=== PATIENT | female | born 1935 | race Caucasian/White ===

== ENCOUNTER 2017-10-23 11:00 | Inpatient (IN) ==
--- NOTE | 2017-10-23 11:29 | Emergency Department Note ---
Disposition Clinical Impression: Acute exacerbation of chronic obstructive airways disease, Hypoxia, Influenza A Disposition: Admitted As Inpatient Condition: Good Time of Disposition: 13:42 General Adult HPI - General Chief complaint: ED Shortness of Breath/Dyspnea Stated complaint: flu-like symptoms Time Seen by Provider: 10/23/17 11:13 Source: patient Limitations: no limitations Nursing Notes Reviewed: Yes Vital Signs Reviewed: Yes - History of Present Illness HPI Narrative: 82-year-old female history of COPD, hypertension, history of pulmonary embolism on Coumadin presents to the ED for difficulty breathing and wheezing. Symptoms started Sunday night and have gradually worsened. This was within the past 48 hours. She reports a general malaise, cough nonproductive, difficulty breathing and soreness in her shoulders and muscle aches. Denies any fever or chills. Denies any chest pain. She spoke to her independent producer Dr. Franklin who recommended she come in for further evaluation to the emergency department. Patient uses inhalers which she reports improvement. She also takes monolukast at night with symptom improvement. Pain Scale: 0 - Related Data Home Medications Medication Instructions Recorded Confirmed Atorvastatin Calcium [Lipitor] 20 mg PO DAILY 10/23/17 10/23/17 Chlorthalidone 25 mg PO DAILY 10/23/17 10/23/17 Escitalopram [Lexapro] 10 mg PO DAILY 10/23/17 10/23/17 Losartan [Cozaar] 25 mg PO DAILY 10/23/17 10/23/17 Metoprolol [Lopressor] 37.5 mg PO BID 10/23/17 10/23/17 Montelukast [Singulair] 10 mg PO DAILY 10/23/17 10/23/17 Potassium Chloride [K-Tab ER] 20 meq PO TID 10/23/17 10/23/17 Ranitidine HCl [Acid [facility] Manager] 150 mg PO BID 10/23/17 10/23/17 Warfarin [Coumadin] 2.5 mg PO SUTUTH 10/23/17 10/23/17 Warfarin [Coumadin] 5 mg PO MOWEFRSA 10/23/17 10/23/17 Allergies Allergy/AdvReac Type Severity Reaction Status Date / Time ELIDA Inhibitors Allergy Hives Verified 10/23/17 12:00 aspirin Allergy Anaphylaxis Verified 09/21/17 09:13 Iodinated Contrast- Oral and Allergy Hives Verified 10/23/17 12:00 IV Dye All systems ED: reviewed and negative except as stated. Review of Systems: As Per HPI Constitutional: Denies: fever, chills, weakness ENT ED: Denies: throat pain, congestion Cardiovascular: Denies: chest pain, dyspnea on exertion Respiratory: Reports: cough, dyspnea, wheezes Gastrointestinal: Denies: abdominal pain, nausea, vomiting Genitourinary: Denies: urgency, dysuria Musculoskeletal: Reports: myalgia. Denies: back pain, neck pain Integumentary: Denies: rash, abrasion, lesions Neurological: Denies: headache Past Medical History - Past Medical History Attestation: Yes The following information was validated with the patient. Source: patient Medical history: Reports: asthma, COPD, GERD, hyperlipidemia, hypertension Psychiatric history: Reports: no psych history - Social History Smoking Status: Never smoker Smokeless Tobacco Status: No Alcohol use: Reports: none Drug use: Reports: none Physical Exam - General Limitations: no limitations General appearance: alert, in no apparent distress - Head Head exam: atraumatic, normocephalic, normal inspection - Eye Eye exam: Present: normal appearance, PERRL, EOMI - ENT ENT exam: normal exam, normal oropharynx, mucous membranes moist - Neck Neck exam: Present: normal inspection, full ROM, trachea midline. Absent: tenderness - Chest Chest inspection: Present: normal inspection, symmetric chest wall rise. Absent : tenderness - Respiratory Respiratory exam: Present: wheezes. Absent: respiratory distress - Expanded Respiratory Exam Location: wheezes: Right, Left - Cardiovascular Cardiovascular exam: Present: regular rate, normal rhythm, normal heart sounds. Absent: systolic murmur, diastolic murmur - Abdominal Exam Abdominal exam: Present: soft, Non-Tender, normal bowel sounds. Absent: tenderness, distention, guarding, rebound, rigidity - Extremities Exam Extremities exam: Present: normal inspection, full ROM, normal capillary refill. Absent: tenderness, pedal edema, calf tenderness - Back Exam Back exam: Present: normal inspection, full ROM. Absent: tenderness - Neurological Exam Neurological exam: Present: alert, oriented X3 - Psychiatric Psychiatric exam: Present: normal affect, normal mood - Skin Skin exam: Present: warm, dry, intact, normal color. Absent: rash, cyanosis, diaphoresis Course - Reevaluation(s) Reevaluation #1: Significant improvement after breathing treatment steroids. Continues to have some scattered wheezing and some crackles. Chest x-ray does not reveal pneumonia. Review of the labs no leukocytosis. BNP is slightly elevated. Possible a component of CHF exacerbation on top of COPD exacerbation. Troponin less than 0.03. Some mild electrolyte abnormality nothing significant. EKG does not reveal any acute ischemic changes. She is influenza A positive. Her INR is a therapeutic at 2.2. Suspect this is more due to her COPD. Denies suspect pulmonary embolism at this time she is there. On her warfarin. Impression is COPD exacerbation, dyspnea, hypoxia, influenza A. Patient will benefit continuous breathing treatment and steroid for COPD exacerbation. Patient and family are in agreement with this plan. - Consultations Consultation #1: Spoke with on-call hospitalist dariusz Gates to admit for hypoxia, COPD exacerbation, influenza A. No further orders at this time Time: 13:42 Vital Signs Temperature 99.6 F 10/23/17 11:07 Pulse Rate 97 10/23/17 11:07 Respiratory Rate 20 10/23/17 11:07 Blood Pressure 125/65 10/23/17 11:07 O2 Sat by Pulse Oximetry 94 10/23/17 11:07 Temperature 98.5 F 10/23/17 13:45 Pulse Rate 103 10/23/17 13:45 Respiratory Rate 22 10/23/17 13:45 Blood Pressure 122/65 10/23/17 13:45 O2 Sat by Pulse Oximetry 94 10/23/17 13:45 Oxygen Delivery Oxygen Delivery Nasal Cannula Medical Decision Making - MDM Narrative Medical decision making narrative: Patient was discussed with my attending physician who agrees with ED management and final disposition. They independently evaluated the patient. Please refer to their attestation to this encounter for additional information. This note was generated by [employer] voice recognition software and as a result grammatical or spelling errors may occur using this program. - Medical Records Medical records reviewed: Yes I reviewed the patient's medical records. - Lab Data Lab results reviewed: Yes I reviewed the patient's lab results. Result diagrams: 10/23/17 11:45 10/23/17 11:45 Lab Results 10/23/17 10/23/17 10/23/17 Range/Units 11:45 11:45 11:45 WBC 6.6 (4.3-11.1) K/mcL RBC 4.34 (3.82-4.97) M/mcL Hgb 13.1 (11.5-15.4) g/dL Hct 37.9 (35.3-44.9) % MCV 87.3 (83.0-100.0) fL MCH 30.2 (28.0-33.3) pg MCHC 34.6 (31.6-35.5) g/dL RDW 13.0 (11.5-14.5) % Plt Count 196 (140-400) K/mcL MPV 9.1 L (9.4-12.4) fL Immature Gran % 0.3 (0-4) % Seg Neutrophils % 74.8 % Lymphocytes % 7.8 % Monocytes % 13.4 % Eosinophils % 2.9 % Basophils % 0.8 % Neutrophils # 4.9 (1.6-8.9) K/mcL Lymphocytes # 0.5 L (0.6-4.6) K/mcL Monocytes # 0.9 (0.0-1.3) K/mcL Eosinophils # 0.2 (0.0-0.6) K/mcL Basophils # 0.1 (0.0-0.2) K/mcL PT (9.4-12.1) Seconds INR Sodium 133 L (136-145) mEq/L Potassium 3.3 L (3.5-5.1) mEq/L Chloride 100 (98-107) mEq/L Carbon Dioxide 25 (23-29) mEq/L BUN 10 (8-23) mg/dL Creatinine 1.09 (0.60-1.20) mg/dL Est GFR ( Amer) 58 L (> 60) Est GFR (Non-Af Amer) 48 L (> 60) BUN/Creatinine Ratio 9 (6-26) Glucose 117 H (70-105) mg/dL Calculated Osmolality 276 L (280-300) Lactic Acid 1.8 (0.5-2.2) mmol/L Calcium 9.0 (8.6-10.3) mg/dL Troponin I (< 0.04) ng/mL B-Natriuretic Peptide (Less than 100) pg/mL 10/23/17 10/23/17 10/23/17 Range/Units 11:45 11:45 11:48 WBC (4.3-11.1) K/mcL RBC (3.82-4.97) M/mcL Hgb (11.5-15.4) g/dL Hct (35.3-44.9) % MCV (83.0-100.0) fL MCH (28.0-33.3) pg MCHC (31.6-35.5) g/dL RDW (11.5-14.5) % Plt Count (140-400) K/mcL MPV (9.4-12.4) fL Immature Gran % (0-4) % Seg Neutrophils % % Lymphocytes % % Monocytes % % Eosinophils % % Basophils % % Neutrophils # (1.6-8.9) K/mcL Lymphocytes # (0.6-4.6) K/mcL Monocytes # (0.0-1.3) K/mcL Eosinophils # (0.0-0.6) K/mcL Basophils # (0.0-0.2) K/mcL PT 23.8 H (9.4-12.1) Seconds INR 2.2 Sodium (136-145) mEq/L Potassium (3.5-5.1) mEq/L Chloride (98-107) mEq/L Carbon Dioxide (23-29) mEq/L BUN (8-23) mg/dL Creatinine (0.60-1.20) mg/dL Est GFR ( Amer) (> 60) Est GFR (Non-Af Amer) (> 60) BUN/Creatinine Ratio (6-26) Glucose (70-105) mg/dL Calculated Osmolality (280-300) Lactic Acid (0.5-2.2) mmol/L Calcium (8.6-10.3) mg/dL Troponin I < 0.03 (< 0.04) ng/mL B-Natriuretic Peptide 132 H (Less than 100) pg/mL - Radiology Data Radiology results reviewed: Yes I reviewed the patient's radiology results. Chest X-Ray 10/23/17 11:37 IMPRESSION: No acute process. D/ / Jesu Porras MD / Jesu Porras MD Interpreting Provider: Jesu Porras MD - EKG Data EKG #1 EKG attestation: Yes I reviewed and interpreted this EKG. EKG results narrative: EKG performed 1155 normal sinus rhythm with a ectopic premature complexes, normal axis, early R wave progression, no ST elevations or depression, no T wave inversion, intervals are within normal limits. Compared to old EKG performed for 2012 shows similar consistent findings. No acute ischemic changes. Attestation Statement - Attestation Attestation: I, Denzel Rea DO, examined this patient [id number] and my medical decision-making was reviewed with Prince Pedersen DO , Resident Physician. I agree with the documented findings, disposition and treatment plan as described except to the extent set forth below. Please see my progress notes for details. 82-year-old female presents to emergency room with flulike symptoms generalized malaise and significant shortness of breath. Patient has known COPD. She has been attempting use her breathing treatments at home without any relief. Denies any recent illnesses outside of what she describes as the muscle aches and then intermittent fevers and chills at home. She has no documented temperature at this time. Vital signs reviewed on presentation show increased work of breathing tachypnea and mild hypoxia. Patient immediately given breathing treatments and oxygen was applied. Clinically she has bilateral breath sounds are coarse and rattly with intermittent wheezing. Her heart is regular but tachycardic. Abdomen is soft nontender nondistended no guarding no rigidity no peritoneal symptoms. No pulsatile masses or lesions noted. Patient is a rash on her back but appears to be from excoriation not from any signs of herpetic-like lesion or infectious etiology. Patient does have mild pitting edema +1 up to the mid geller. Patient is having some mild resolution of the symptoms while here in the emergency room. She feels much less labored on presentation. BiPAP was not needed initially. Patient is concerning for COPD exacerbation with either bronchitis or pneumonia. She also may have an aspect of pulmonary congestion secondary to congestive heart failure. Patient will most likely need admission. Patient family informed as well as a patient this time and there are comfortable with this treatment course and progression. They understand her concern appreciated concern at this time. Patient will have admission process completed once laboratory workup and imaging modalities are resulted. See detailed documentation of physical exam, medical intervention , medical decision-making and disposition of the resident physician no. Initial EKG shows sinus rhythm with intermittent PVCs. No acute signs of ST segment elevation or abnormalities. It is compared and reviewed in comparison to EKG of 01/27/13. 1430 Patient is going to be admitted this time. Hospitalist informed. No other questions or concerns. Patient stable at the time of admission to the floor.
[2017-10-23] MEDS ORDERED: Ipratropium/Albuterol Neb 3 ML IH ONE (11:37)
[2017-10-23] MEDS ORDERED: methylPREDNISolone 125 MG/2 ML VIAL IVP ONE (11:37)
[2017-10-23 11:58] LABS: INR 2.2; Prothrombin Time 23.8 Seconds (9.4-12.1)
[2017-10-23 11:58] LABS: Basophils # 0.1 K/mcL (0.0-0.2); Basophils % 0.8 %; Eosinophils # 0.2 K/mcL (0.0-0.6); Eosinophils % 2.9 %; Hematocrit 37.9 % (35.3-44.9); Hemoglobin 13.1 g/dL (11.5-15.4); Immature Granulocytes % 0.3 % (0-4); Lymphocytes # 0.5 K/mcL (0.6-4.6); Lymphocytes % 7.8 %; Mean Corpuscular HGB Conc 34.6 g/dL (31.6-35.5); Mean Corpuscular Hemoglobin 30.2 pg (28.0-33.3); Mean Corpuscular Volume 87.3 fL (83.0-100.0); Mean Platelet Volume 9.1 fL (9.4-12.4); Monocytes # 0.9 K/mcL (0.0-1.3); Monocytes % 13.4 %; Neutrophils # 4.9 K/mcL (1.6-8.9); Platelet Count 196 K/mcL (140-400); Red Blood Count 4.34 M/mcL (3.82-4.97); Segmented Neutrophils % 74.8 %
[2017-10-23 12:13] LABS: Potassium 3.3 mEq/L (3.5-5.1)
--- NOTE | 2017-10-23 16:07 | Internal Med History&Physical ---
Date of Encounter: 10/23/17 Time of Encounter: 16:34 Assessment and Plan (1) Acute exacerbation of chronic obstructive airways disease Current visit: Yes Status: Acute ASSESSMENT: - SOB due to *COPd exacerbation caused by URTI, allergen exposure, medication nonocompliance *Pneumonia - no infiltrate on CXR PLAN: - Aerosols q 4 hr and PRN SOB - Solu-medrol 40 mg IV q 6 hr - O2 to keep SpO2 higher than 92% (SpO higher than 95% if CAD) - CBCD, BMP in AM - Sputum Gram stain, C+S - Tylenol 650 mg PO q 4-6 hr PRN pain/fever - Heparin 5000 U SQ BID - Home meds - check the list and restart - ABs (2) Influenza A Current visit: Yes Status: Acute Starting oseltamivir for 10 doses (3) Hyponatremia Current visit: Yes Status: Acute Mild hyponatremia , most likely hypovolumic, monitor (4) Chronic kidney disease (CKD) Current visit: Yes Status: Acute Cr at baseline , renal dosing of meds, avoid nephrotoxins (5) DVT prophylaxis Current visit: Yes Status: Acute On chronic anticoagulation with Coumadin Internal Medicine - H&P: HPI Chief complaint: SOB Admitted From: Home History of present illness: Ms. Mejia is a 82 year old female with history of COPD, hypertension, history of pulmonary embolism on chronic anticoagulation with Coumadin presents to the ED with progressive worsening of SOB and wheezing associated with general malaise, cough nonproductive and soreness in her shoulders and muscle aches. She was evaluated by the ER staff and she tested positive for the flu, She was admitted for further evaluation and management of COPD exacerbation. Past Med Surg Social Fam HX - Past Medical History Medical history: asthma, COPD, GERD, hyperlipidemia, hypertension Psychiatric history: no psych history - Social History Smoking Status: Never smoker Smokeless Tobacco Status: No Alcohol use: none Drug use: none - Family History Father Name: Arsen Wilhelm Living Status: Cause of : 67 Hx Family Cardiac Disorders: Yes Internal Medicine - H&P: Meds Atorvastatin Calcium [Lipitor] 20 mg PO DAILY 10/23/17 [History] Chlorthalidone 25 mg PO DAILY 10/23/17 [History] Escitalopram [Lexapro] 10 mg PO DAILY 10/23/17 [History] Metoprolol [Lopressor] 37.5 mg PO BID 10/23/17 [History] Montelukast [Singulair] 10 mg PO DAILY 10/23/17 [History] Potassium Chloride [K-Tab ER] 20 meq PO TID 10/23/17 [History] Ranitidine HCl [Acid Clinical Programmer] 150 mg PO BID 10/23/17 [History] Warfarin [Coumadin] 2.5 mg PO SUTUTH 10/23/17 [History] Warfarin [Coumadin] 5 mg PO MOWEFRSA 10/23/17 [History] 3 Allergy/AdvReac Type Severity Reaction Status Date / Time ELIDA Inhibitors Allergy Hives Verified 10/23/17 12:00 ARB-Angiotensin Receptor Allergy Swelling Verified 10/24/17 09:20 Antagonist of Lip/Tongue/Throat aspirin Allergy Anaphylaxis Verified 09/21/17 09:13 Iodinated Contrast- Oral and Allergy Hives Verified 10/23/17 12:00 IV Dye All Systems PM: A 10-system review of systems was performed and is negative for pertinent findings except as documented above in the HPI. - Constitutional Constitutional: no chills, no fever(s), no night sweats - Cardiovascular Cardiovascular ROS IM: dyspnea, no chest pain, no diaphoresis, no lightheadedness, no palpitations, no syncope - Respiratory Respiratory: cough, dyspnea, wheezing, no excessive phlegm production - Gastrointestinal Gastrointestinal: no abdominal pain, no diarrhea, no hematemesis, no hematochezia, no melena, no nausea, no vomiting - Neurological Neurological ROS: no confusion, no convulsions, no focal weakness, no numbness, no tingling, no tremor(s) - Constitutional Vitals: Temp Pulse Resp BP Pulse Ox 98.0 F 95 16 101/63 95 10/23/17 14:36 10/23/17 14:36 10/23/17 14:36 10/23/17 14:36 10/23/17 14:36 General appearance: Present: A&O X 3 - Head Head exam: Present: atraumatic, normocephalic - Neck Neck exam general surgery: Present: supple, trachea midline. Absent: lymphadenopathy - Respiratory Respiratory exam: Present: rhonchi, wheezes. Absent: accessory muscle use, rales - Cardiovascular Cardiovascular exam: Present: RRR, +S1, +S2. Absent: diastolic murmur, gallop, rubs, systolic murmur - GI/Abdominal GI/Abdominal exam: Present: normal bowel sounds, soft, no peritoneal signs. Absent: distended, tenderness - Extremities Exam Extremities exam: Present: warm, radial pulses palpable and symmetrical. Absent : calf tenderness, cyanotic, pedal edema Internal Med - H&P Results - Labs CBC & Chem 7: 10/24/17 04:42 10/24/17 04:42
[2017-10-23] MEDS ORDERED: Naloxone 0.4 MG/ML INJ IVP PRN (16:28)
[2017-10-23] MEDS ORDERED: LEVOFLOXACIN 750 MG/150 ML IVPB SCH (17:00)
[2017-10-23] MEDS ORDERED: *HR* Warfarin 2.5 MG TABLET PO SCH (18:00)
[2017-10-23] MEDS: Ipratropium/Albuterol Neb 3 ML IH SCH ×2 (18:18→22:10)
[2017-10-23] MEDS: 0.9 % Sodium Chloride 1,000 ML IVC SCH (19:39)
[2017-10-23] MEDS: Famotidine 20 MG TABLET PO SCH (20:13)
[2017-10-24] MEDS: MethylPREDNISolone 40 MG/ML VIAL IVP SCH ×3 (00:02→16:06)
[2017-10-24] MEDS: Ipratropium/Albuterol Neb 3 ML IH SCH ×4 (04:22→22:41)
[2017-10-24 04:56] LABS: Hematocrit 35.4 % (35.3-44.9); Hemoglobin 12.3 g/dL (11.5-15.4); Immature Granulocytes % 0.5 % (0-4); Lymphocytes # 0.7 K/mcL (0.6-4.6); Lymphocytes % 11.8 %; Mean Corpuscular HGB Conc 34.7 g/dL (31.6-35.5); Mean Corpuscular Hemoglobin 29.7 pg (28.0-33.3); Mean Corpuscular Volume 85.5 fL (83.0-100.0); Mean Platelet Volume 8.9 fL (9.4-12.4); Monocytes # 0.3 K/mcL (0.0-1.3); Monocytes % 5.2 %; Neutrophils # 4.8 K/mcL (1.6-8.9); Platelet Count 193 K/mcL (140-400); Red Blood Count 4.14 M/mcL (3.82-4.97); Red Cell Distribution Width 12.8 % (11.5-14.5); Segmented Neutrophils % 82.5 %
[2017-10-24] MEDS ORDERED: Levofloxacin 500 MG/100 ML 500 MG/100 ML BAG IVPB SCH (09:00)
[2017-10-24] MEDS: Famotidine 20 MG TABLET PO SCH (09:19)
[2017-10-24] MEDS: 0.9 % Sodium Chloride 1,000 ML IVC SCH (13:02)
--- NOTE | 2017-10-24 17:22 | Internal Med Progress Note ---
Date of Encounter: 10/24/17 Time of Encounter: 17:20 - Assessment and plan (1) Acute exacerbation of chronic obstructive airways disease Current Visit: Yes Status: Acute Assessment and plan: Cont frequent duoneb Breathing comfortably on RA started tapering IV steroids cont empirical abx Levaquin (2) Influenza A Current Visit: Yes Status: Acute Assessment and plan: Cont Tamiflu (3) Acute bronchitis Current Visit: Yes Status: Acute Assessment and plan: Mostly due to Influenza A supra infected with bacterial too cont Lois flu + empirical abx Levaquin Qualifiers: Qualified Code(s): J20.9 - Acute bronchitis, unspecified (4) Hypertension Current Visit: Yes Status: Acute Assessment and plan: resumed home meds Metoprolol Held Chlorthalidone due to dehydration Qualifiers: Hypertension type: essential hypertension Qualified Code(s): I10 - Essential (primary) hypertension (5) DVT prophylaxis Current Visit: Yes Status: Acute Assessment and plan: on Levaquin SQ - Subjective Interval history: Ms. Mejia is a 82 year old female with history of COPD, hypertension, history of pulmonary embolism on chronic anticoagulation with Coumadin presents to the ED with progressive worsening of SOB and wheezing associated with general malaise, cough nonproductive and soreness in her shoulders and muscle aches. She was evaluated by the ER staff and she tested positive for the flu, She was admitted for further evaluation and management of COPD exacerbation. Pt stated she is feeling little better now. Denied any CP. Still has mild SOB and MARTINEZ, as well as cough with no expectoration. - Constitutional Vitals: Temp Pulse Resp BP Pulse Ox 98.5 F 61 15 141/66 92 10/24/17 16:02 10/24/17 16:02 10/24/17 16:24 10/24/17 16:02 10/24/17 16:24 General appearance: Present: A&O X 3, no acute distress, answers questions appropriately - Head Head exam: Present: atraumatic, normal inspection - Neck Neck exam general surgery: Present: supple - Respiratory Respiratory exam: Present: decreased breath sounds, wheezes (mild). Absent: rales, respiratory distress, rhonchi - Cardiovascular Cardiovascular exam: Present: RRR, +S1, +S2. Absent: tachycardia - GI/Abdominal GI/Abdominal exam: Present: normal bowel sounds, soft. Absent: rebound, rigid, tenderness - Extremities Exam Extremities exam: Absent: calf tenderness, pedal edema, tenderness - Back Exam Back exam: Absent: CVA tenderness (L), CVA tenderness (R) - Psychiatric Psychiatric exam: Present: normal affect, normal mood - Skin Skin exam: Present: rash (eczematous rash) Internal Medicine: Result - Labs CBC & Chem 7: 10/24/17 04:42 10/24/17 04:42 Labs: Short CBC 10/24/17 Range/Units 04:42 WBC 5.8 (4.3-11.1) K/mcL Hgb 12.3 (11.5-15.4) g/dL Hct 35.4 (35.3-44.9) % Plt Count 193 (140-400) K/mcL Neutrophils # 4.8 (1.6-8.9) K/mcL BMP 10/24/17 04:42 Glucose 144 H - ABG Interpretation ABG results: PT/INR, D-dimer PT 23.8 Seconds (9.4-12.1) H 10/23/17 11:48 Consult Discharge Plan - Plan Referrals: Ventura Hicks DO [Primary Care Provider] -
[2017-10-24] MEDS ORDERED: *HR* Warfarin 5 MG TABLET PO SCH (18:00)
[2017-10-24 18:33] LABS: INR 3.2; Prothrombin Time 35.7 Seconds (9.4-12.1)
--- NOTE | 2017-10-24 19:55 | Electrocardiograph Report ---
[address] [address] Test Date: 2017-10-23 Pat Name: Adrianna Mejia Department: 104 Room: 3B Gender: F Gleason Operator: KALIN : 1935 Requested By: Prince Pedersen Order Number: [id number] Reading MD: Markell Gupta MD Measurements Intervals [place] Rate: 98 P: 99 GA: 141 QRS: 26 QRSD: 77 T: 46 QT: 343 QTc: 399 Interpretive Statements SINUS RHYTHM WITH OCCASIONAL ECTOPIC PREMATURE COMPLEXES Electronically Signed On 10-24-2017 19:54:01 EST by Markell Gupta MD
[2017-10-24] MEDS: Oseltamivir Phosphate 30 MG CAPSULE PO SCH (20:52)
[2017-10-25] MEDS: Ipratropium/Albuterol Neb 3 ML IH SCH ×2 (04:31→10:44)
[2017-10-25 05:13] LABS: INR 3.6; Prothrombin Time 39.3 Seconds (9.4-12.1)
[2017-10-25] MEDS ORDERED: MethylPREDNISolone 40 MG/ML VIAL IVP SCH (06:00)
[2017-10-25 06:53] LABS: Calcium 8.1 mg/dL (8.6-10.3); Potassium 3.3 mEq/L (3.5-5.1)
[2017-10-25] MEDS: Oseltamivir Phosphate 30 MG CAPSULE PO SCH (08:53)
[2017-10-25] MEDS ORDERED: Famotidine 20 MG TABLET PO SCH (09:00)
--- NOTE | 2017-10-25 11:05 | Discharge Summary ---
Date of Encounter: 10/25/17 Time of Encounter: 11:04 - Discharge Diagnosis (1) Acute exacerbation of chronic obstructive airways disease Priority: Primary Status: Acute (2) Influenza A Priority: Primary Status: Acute (3) Acute bronchitis Priority: Primary Status: Acute Qualifiers: Qualified Code(s): J20.9 - Acute bronchitis, unspecified (4) Hypertension Priority: Secondary Status: Acute Qualifiers: Hypertension type: essential hypertension Qualified Code(s): I10 - Essential (primary) hypertension (5) Pulmonary embolism Priority: Secondary Status: Chronic Qualifiers: Qualified Code(s): I27.82 - Chronic pulmonary embolism (6) DVT prophylaxis Priority: Secondary Status: Acute - Discharge Medications Prescriptions: Albuterol Neb [AccuNeb] 0.63 mg IH Q6HR PRN #100 inhsol PRN Reason: Shortness Of Breath Albuterol Sulfate [Albuterol Inhaler] 2 puff IH Q6HR PRN #1 hfa.aer.ad PRN Reason: Shortness Of Breath Amoxicillin/Clavulanate [Augmentin] 875 mg PO BIDWM #8 tablet Oseltamivir Phosphate [Tamiflu] 30 mg PO BID 4 Days capsule predniSONE [PredniSONE] 40 mg PO DAILY #10 tablet Home Medications: Atorvastatin Calcium [Lipitor] 20 mg PO DAILY 10/23/17 [History] Chlorthalidone 25 mg PO DAILY 10/23/17 [History] Escitalopram [Lexapro] 10 mg PO DAILY 10/23/17 [History] Metoprolol [Lopressor] 37.5 mg PO BID 10/23/17 [History] Montelukast [Singulair] 10 mg PO DAILY 10/23/17 [History] Potassium Chloride [K-Tab ER] 20 meq PO TID 10/23/17 [History] Ranitidine HCl [Acid Splash Line Operator] 150 mg PO BID 10/23/17 [History] Warfarin [Coumadin] 2.5 mg PO SUTUTH 10/23/17 [History] Warfarin [Coumadin] 5 mg PO [id number] 10/23/17 [History] Albuterol Neb [AccuNeb] 0.63 mg IH Q6HR PRN #100 inhsol 10/25/17 [Rx] Albuterol Sulfate [Albuterol Inhaler] 2 puff IH Q6HR PRN #1 hfa.aer.ad 10/25/17 [Rx] Amoxicillin/Clavulanate [Augmentin] 875 mg PO BIDWM #8 tablet 10/25/17 [Rx] Oseltamivir Phosphate [Tamiflu] 30 mg PO BID 4 Days capsule 10/25/17 [Rx] predniSONE [PredniSONE] 40 mg PO DAILY #10 tablet 10/25/17 [Rx] Allergies/Adverse Reactions: 3 Allergy/AdvReac Type Severity Reaction Status Date / Time ELIDA Inhibitors Allergy Hives Verified 10/23/17 12:00 ARB-Angiotensin Receptor Allergy Swelling Verified 10/24/17 09:20 Antagonist of Lip/Tongue/Throat aspirin Allergy Anaphylaxis Verified 09/21/17 09:13 Iodinated Contrast- Oral and Allergy Hives Verified 10/23/17 12:00 IV Dye lorazepam [From Ativan] AdvReac See Verified 10/24/17 16:22 Comments Date of admission: 10/23/17 16:28 Primary care physician: Ventura Hicks DO - Patient Status Disposition: Home, Self-Care Condition: Good Overall status at discharge: patient is back to baseline - Discharge Instructions Follow Up With: Ventura Hicks DO [Primary Care Provider] - 11/01/17 2:45 pm - Diet and Activity Activity: increase activity as tolerated Diet: low salt diet Hospital course: Ms. Mejia is a 82 year old female with history of COPD, hypertension, history of pulmonary embolism on chronic anticoagulation with Coumadin presents to the ED with progressive worsening of SOB and wheezing associated with general malaise, cough nonproductive and soreness in her shoulders and muscle aches. She was evaluated by the ER staff and she tested positive for the flu, She was admitted for further evaluation and management of COPD exacerbation. She was started on low dose systemic steroids, empirical abx and Tamiflu. Her symptoms started improving slowly. Pt stated she is feeling little better now. Denied any CP. She feels like back to baseline. So will d/c her home today in stable condition. - Time Spent with Patient Total time spent providing and/or coordinating discharge services: - Constitutional Vitals: Temp Pulse Resp BP Pulse Ox 98.0 F 85 16 136/64 95 10/25/17 07:36 10/25/17 07:36 10/25/17 10:42 10/25/17 07:36 10/25/17 10:42 General appearance: Present: A&O X 3, no acute distress, answers questions appropriately - Head Head exam: Present: atraumatic, normal inspection - Respiratory Respiratory exam: Present: decreased breath sounds, wheezes (mild). Absent: rales, respiratory distress, rhonchi - Cardiovascular Cardiovascular exam: Present: RRR, +S1, +S2. Absent: tachycardia - GI/Abdominal GI/Abdominal exam: Present: normal bowel sounds, soft. Absent: rebound, rigid, tenderness - Extremities Exam Extremities exam: Absent: calf tenderness, pedal edema, tenderness - Back Exam Back exam: Absent: CVA tenderness (L), CVA tenderness (R)
[2017-10-25 12:30] VITALS: BP 148/88
== END 2017-10-25 13:40 | disposition home or self-care (01) | DRG 191 ==
LOC: EMEROO 11:00 → 3BNU 11:00
PROVIDERS: ADMIT Internal Medicine Nephrology; ATTEND Registered Nurse